=== PATIENT | male | born 1950 | race Caucasian/White ===

== ENCOUNTER 2019-01-06 23:08 | Observation (INO) ==
[2019-01-07] MEDS ORDERED: SODIUM CHLORIDE 0.9% 1,000 ML IV STA (00:48)
[2019-01-07 01:53] LABS: Basophils # 0.1 10*3/uL (0.0-0.2); Basophils % 0.4 % (0.0-0.8); Eosinophils # 0.3 10*3/uL (0.0-0.87); Eosinophils % 2.2 % (0.00-10.9); Hematocrit 45.2 VOL% (42.0-52.0); Hemoglobin 14.3 GM/DL (14.0-18.0); Immature Granulocytes % 0.7 %; Lymphocytes # 1.8 10*3/uL (1.4-4.0); Lymphocytes % 13.5 % (21.2-54.2); Mean Corpuscular HGB Conc 31.6 GM/DL (32-36); Mean Platelet Volume 9.4 FL (9.6-12.0); Monocytes % 8.3 % (1.7-12.7); Neutrophils % 74.9 % (38.7-73.9); Platelet Count 241 T/CUMM (130-400); Red Blood Count 5.02 MC/CUMM (3.8-5.5); Red Cell Distribution Width 12.6 % (9.3-17.3); White Blood Count 13.7 T/CUMM (4-12)
[2019-01-07] MEDS ORDERED: MORPHINE 4 MG/1 ML VIAL IV PRN (01:59)
[2019-01-07] MEDS ORDERED: ONDANSETRON 4 MG/2 ML VIAL IV STA (01:59)
[2019-01-07 02:11] LABS: Albumin 3.3 G/DL (3.4-5.0); Bilirubin,Total 0.4 MG/DL (0.2-1.0); Calcium 9.5 MG/DL (8.5-10.1); Osmolality,Calculated 281.2 MOS/KG (273-304); Total Protein 7.5 G/DL (6.4-8.3)
[2019-01-07] MEDS ORDERED: ACETAMINOPHEN 325 MG TABLET PO PRN (02:12)
[2019-01-07] MEDS ORDERED: ONDANSETRON 4 MG/2 ML VIAL IV PRN (02:12)
[2019-01-07] MEDS ORDERED: traZODone 50 MG TABLET PO PRN (02:12)
[2019-01-07] MEDS ORDERED: DOCUSATE SODIUM 100 MG CAPSULE PO PRN (02:12)
[2019-01-07] MEDS ORDERED: PHENOL 1.4% THROAT SPRAY 177 ML BOTTLE PO PRN (06:12)
[2019-01-07] MEDS: PANTOPRAZOLE 40 MG TABLET PO SCH (08:31)
[2019-01-07] MEDS: PIPERACILLIN/TAZOBACTAM 3,375 MG in SODIUM CHLORIDE 0.9% 100 ML IV SCH ×3 (08:46→22:14)
[2019-01-07] MEDS ORDERED: hydrALAZINE 20 MG/1 ML VIAL IV PRN (10:40)
[2019-01-07] MEDS: SODIUM CHLORIDE 0.9% 1,000 ML IV SCH (13:13)
[2019-01-07] MEDS: methylPREDNISolone SOD SUC 40 MG/1 ML VIAL IV SCH (16:48)
[2019-01-08] MEDS: PIPERACILLIN/TAZOBACTAM 3,375 MG in SODIUM CHLORIDE 0.9% 100 ML IV SCH (05:38)
[2019-01-08] MEDS: methylPREDNISolone SOD SUC 40 MG/1 ML VIAL IV SCH (05:38)
[2019-01-08] MEDS: SODIUM CHLORIDE 0.9% 1,000 ML IV SCH (05:43)
[2019-01-08] MEDS ORDERED: AMOXICILLIN 500 MG CAPSULE PO SCH (09:00)
[2019-01-08] MEDS: PANTOPRAZOLE 40 MG TABLET PO SCH (09:18)
[2019-01-08] MEDS ORDERED: TUBERCULIN SKIN TEST 0.1 ML SYRINGE INTRADERM ONE (12:00)
[2019-01-08 12:07] VITALS: BP 136/85
== END 2019-01-08 14:37 | disposition home or self-care (01) ==
LOC: N.EDINP 23:08 → N.ED 23:08 → N.2E 01-07 02:37
PROVIDERS: ADMIT Hospitalist; ATTEND Hospitalist

== ENCOUNTER 2020-01-31 23:50 | Observation (INO) ==
[2020-02-01] MEDS ORDERED: INSULIN REGULAR 100 UNIT/ML SUBCUT STA (00:20)
[2020-02-01 00:26] LABS: Basophils # 0.1 10*3/uL (0.0-0.2); Basophils % 0.6 % (0.0-0.8); Eosinophils # 0.3 10*3/uL (0.0-0.87); Eosinophils % 2.8 % (0.00-10.9); Hematocrit 48.7 VOL% (42.0-52.0); Hemoglobin 15.9 GM/DL (14.0-18.0); Immature Granulocytes % 0.4 %; Immature Granulocytes Absolute 0.04 #; Lymphocytes # 2.4 10*3/uL (1.4-4.0); Lymphocytes % 26.5 % (21.2-54.2); Mean Corpuscular HGB Conc 32.6 GM/DL (32-36); Mean Corpuscular Volume 91.4 FL (87-102); Mean Platelet Volume 9.1 FL (9.6-12.0); Monocytes % 7.7 % (1.7-12.7); Platelet Count 250 T/CUMM (130-400); Red Blood Count 5.33 MC/CUMM (3.8-5.5); White Blood Count 9.1 T/CUMM (4-12)
[2020-02-01 00:34] LABS: PT Patient Result 10.3 SECS (9.8-11.9)
[2020-02-01 00:37] LABS: Apearance,Urine CLEAR (Clear); Bacteria,Urine Occasional /HPF (Few); Bilirubin,Urine Negative (Negative); Blood, Urine Small mg/dL (Negative); Glucose,Urine (UA) >=500 mg/dL (Negative); Ketones,Urine Negative (Negative); Nitrite,Urine Negative (Negative); Protein,Urine Negative; RBC,Urine 1 /HPF (0-4); Urine Color Straw (Yellow); Urine Specific Gravity 1.029 (1.001-1.035); Urine Urobilinogen < 2.0 EU/DL (0.2-1.0); WBC,Urine <1 /HPF (0-6)
[2020-02-01 00:44] LABS: Alanine Aminotransferase 18 U/L (16-61); Albumin 3.6 G/DL (3.4-5.0); Alkaline Phosphatase 80 U/L (45-117); Aspartate Amino Transferase 7 U/L (0-37); Blood Urea Nitrogen 20 MG/DL (7-18); Calcium 9.3 MG/DL (8.5-10.1); Estimated Glom Filtration Rate 87 ML/MIN; Glucose 395 MG/DL (74-106); Osmolality,Calculated 282.5 MOS/KG (273-304); Total Protein 8.1 G/DL (6.4-8.3)
[2020-02-01 00:55] LABS: Acetaminophen < 2.0 UG/ML (10-30); Salicylate < 2.8 MG/DL (2.8-20)
[2020-02-01 01:09] LABS: Barbiturates Screen,Urine Negative (Negative); Benzodiazepines Screen,Urine Negative (Negative); Cannabinoid Screen,Urine Negative (Negative); Opiate Screen,Urine Negative (Negative); Phencyclidine Screen,Urine Negative (Negative)
[2020-02-01] MEDS ORDERED: hydrALAZINE 20 MG/1 ML VIAL IV PRN (02:33)
[2020-02-01] MEDS ORDERED: GLUCAGON 1 MG VIAL IM PRN (02:33)
[2020-02-01] MEDS ORDERED: ACETAMINOPHEN 325 MG TABLET PO PRN (02:33)
[2020-02-01] MEDS ORDERED: DEXTROSE 50% 25 GM/50 ML VIAL IV PRN (02:33)
[2020-02-01] MEDS ORDERED: ONDANSETRON 4 MG/2 ML VIAL IV PRN (02:33)
[2020-02-01] MEDS ORDERED: diphenhydrAMINE CAP 25 MG CAPSULE PO PRN (02:33)
[2020-02-01] MEDS ORDERED: guaiFENesin/DM ER 600-30 MG TABLET PO PRN (02:33)
[2020-02-01] MEDS ORDERED: NICOTINE 21 MG/24 HR PATCH TRANSDERM PRN (02:33)
[2020-02-01] MEDS: INSULIN REGULAR 100 UNIT/ML SUBCUT SCH ×3 (07:27→17:58)
[2020-02-01] MEDS ORDERED: PANTOPRAZOLE 40 MG TABLET PO SCH (09:00)
[2020-02-01] MEDS ORDERED: CETIRIZINE 10 MG TABLET PO SCH (09:00)
[2020-02-01] MEDS ORDERED: metFORMIN 500 MG TABLET PO SCH (09:00)
[2020-02-01] MEDS ORDERED: FLUTICASONE 50 MCG NASAL SPRAY 16 GM BOTTLE BOTH NARES SCH (09:00)
[2020-02-01] MEDS ORDERED: BENZTROPINE 1 MG TABLET PO SCH (09:00)
[2020-02-01] MEDS ORDERED: risperiDONE 1 MG TABLET PO SCH ×2 (09:00)
[2020-02-01] MEDS ORDERED: amLODIPine 5 MG TABLET PO SCH (09:00)
[2020-02-01] MEDS: busPIRone 15 MG TABLET PO SCH ×2 (09:19→15:37)
[2020-02-01 16:16] VITALS: BP 144/87
[2020-02-01] MEDS ORDERED: QUEtiapine 100 MG TABLET PO SCH (21:00)
[2020-02-01] MEDS ORDERED: ESCITALOPRAM 10 MG TABLET PO SCH (21:00)
== END 2020-02-01 18:01 ==
LOC: N.EDINP 23:50 → N.ED 23:50 → N.2E 02-01 03:05
PROVIDERS: ADMIT Hospitalist; ATTEND Hospitalist